=== PATIENT | male | born 1980 | race Two or more races ===

== ENCOUNTER 2017-12-05 16:35 | Emergency (ER) | payer OTHER, SELFPAY ==
[~2017-12-05] VITALS: Ht 175.3 cm; Wt 100.6 kg
[2017-12-05] MEDS ORDERED: ASPIRIN 81 MG TABLET CHEW PO ONE (18:00)
[2017-12-05] MEDS ORDERED: SODIUM CHLORIDE FLUSH 10ML SYR IVF ONE (18:00)
[2017-12-05 18:09] LABS: BASOPHILS # (AUTO) 0.03 x10^3/uL (0-0.1); BASOPHILS % (AUTO) 0 % (0-1); EOSINOPHILS # (AUTO) 0.17 x10^3/uL (0-0.4); EOSINOPHILS % (AUTO) 3 % (1-7); LYMPHOCYTES # (AUTO) 2.94 x10^3/uL (1-3.4); LYMPHOCYTES % (AUTO) 43 % (22-44); MD NO; MEAN CORPUSCULAR HEMOGLOBIN 30.6 pg (27.5-34.5); MEAN CORPUSCULAR HGB CONC 34.3 g/dL (33.2-36.2); MEAN CORPUSCULAR VOLUME 89.3 fL (81-97); MEAN PLATELET VOLUME 8.1 fL (7.4-10.4); MONOCYTES # (AUTO) 0.47 x10^3/uL (0.2-0.8); MONOCYTES % (AUTO) 7 % (2-9); NEUTROPHILS # (AUTO) 3.19 x10^3/uL (1.8-6.8); NEUTROPHILS % (AUTO) 47 % (42-75); PLATELET COUNT 228 x10^3/uL (130-400); RED CELL DISTRIBUTION WIDTH 12.3 % (9.4-14.8)
[2017-12-05] MEDS ORDERED: ASPIRIN 81 MG TABLET CHEW ONE (18:19)
[2017-12-05 18:21] LABS: ALBUMIN 3.7 g/dL (3.4-5.0); ANION GAP 9 mmol/L (5-15); CALCIUM 8.6 mg/dL (8.5-10.1); CHLORIDE 101 mmol/L (98-107)
[2017-12-05 18:26] LABS: ALANINE AMINOTRANSFERASE 67 U/L (12-78); ALKALINE PHOSPHATASE 75 U/L (45-117); BILIRUBIN,TOTAL 0.3 mg/dL (0.2-1.0); CREATININE 0.96 mg/dL (0.7-1.3); TOTAL PROTEIN 7.7 g/dL (6.4-8.2); TROPONIN I < 0.015 ng/mL (0.000-0.045)
[2017-12-05 21:23] VITALS: BP 128/94
== END 2017-12-05 21:25 | disposition home or self-care (01) ==
LOC: ED 21:21
DX: M25.512 Pain in left shoulder (principal); M54.2 Cervicalgia; E11.9 Type 2 diabetes mellitus without complications
CPT/HCPCS: 36415; 71045; 80053; 84484; 85025; 93005; 99285